=== PATIENT | female | born 1985 | race Caucasian/White ===

== ENCOUNTER 2018-03-22 08:55 | Inpatient (IN) | payer OTHER ==
[~2018-03-22] VITALS: Ht 155 cm; Wt 81.2 kg
[2018-03-22 09:18] VITALS: BP 112/73
[2018-03-22] MEDS ORDERED: PNV1TABL54 PO (09:19)
[2018-03-22] MEDS ORDERED: RINGERS SOLUTION,LACTATED 1,000 ML IV PRN (12:25)
[2018-03-22] MEDS ORDERED: OXYTOCIN 30 UNITS/LACT RINGERS 500 ML IV ONE (12:25)
[2018-03-22] MEDS ORDERED: RINGERS SOLUTION,LACTATED 1,000 ML IV SCH (12:25)
[2018-03-22] MEDS ORDERED: OXYTOCIN 30 UNITS/LACT RINGERS 500 ML IV PRN (12:28)
[2018-03-22] MEDS ORDERED: LIDOCAINE/PF 1% 30 ML VIAL INJ PRN (12:30)
[2018-03-22] MEDS ORDERED: METHYLERGONOVINE MALEATE 0.2 MG/ML VIAL IM PRN (12:30)
[2018-03-22] MEDS ORDERED: OXYGEN THERAPY IH SCH (12:30)
[2018-03-22] MEDS ORDERED: CITRIC ACID/SODIUM CITRATE 30 ML SOLUTION UDCUP PO PRN (12:30)
[2018-03-22] MEDS ORDERED: METOCLOPRAMIDE HCL 5 MG/ML 2 ML VIAL IVP PRN (12:30)
[2018-03-22] MEDS ORDERED: FentaNYL CITRATE-PF 100 MCG/2 ML VIAL IVP PRN (12:30)
[2018-03-22 13:04] LABS: BASOPHILS % (AUTO) 0.5 % (0.0-2.0); EOSINOPHILS % (AUTO) 0.1 % (1.0-6.0); HEMATOCRIT 31.7 % (36-46); LYMPHOCYTES # (AUTO) 1.5 K/uL (1.0-4.8); LYMPHOCYTES % (AUTO) 18.6 % (22.0-44.0); MEAN CORPUSCULAR HEMOGLOBIN 35.8 pg (26.0-34.0); MEAN CORPUSCULAR HGB CONC 34.7 G/dL (31.0-37.0); MEAN CORPUSCULAR VOLUME 103 fL (80-100); MONOCYTES # (AUTO) 0.4 K/uL (0.1-1.0); MONOCYTES % (AUTO) 5.4 % (2.0-9.0); NEUTROPHILS # (AUTO) 6.1 K/uL (1.8-7.7); NEUTROPHILS % (AUTO) 75.4 % (40.0-70.0); PLATELET COUNT (AUTO)-OB 226 K/uL (150-450); RED BLOOD CELL COUNT(AUTO) 3.06 MIL/uL (4.00-5.20); RED CELL DISTRIBUTION WIDTH 13.7 % (11.5-14.5)
[2018-03-22] MEDS ORDERED: ROPIVACAINE HCL/PF 0.2% 100 ML ED ONE (13:31)
[2018-03-22] MEDS ORDERED: ACETAMINOPHEN/CODEINE 300-30 MG TABLET PO PRN ×2 (16:00)
[2018-03-22] MEDS ORDERED: LANOLIN 7 GM OINTMENT TP PRN (16:00)
[2018-03-22] MEDS ORDERED: BENZOCAINE 20%/MENTHOL 56 GM SPRAY CANISTER TP PRN (16:00)
[2018-03-22] MEDS ORDERED: GLYCERIN/WITCH HAZEL LEAF 40 PADS JAR TP PRN (16:00)
[2018-03-22] MEDS: IBUPROFEN 800 MG TABLET PO SCH (18:01)
[2018-03-22] MEDS: MAGNESIUM HYDROXIDE SUSPENSION 30 ML UDCUP PO SCH (21:37)
[2018-03-23] MEDS: IBUPROFEN 800 MG TABLET PO SCH ×2 (01:02→08:29)
[2018-03-23] MEDS: MAGNESIUM HYDROXIDE SUSPENSION 30 ML UDCUP PO SCH (08:29)
[2018-03-23] MEDS ORDERED: IBUP-2071 PO (11:23)
[2018-03-23] MEDS ORDERED: DSS100 PO (11:24)
[2018-03-23] MEDS ORDERED: FERR-89 PO (11:25)
== END 2018-03-23 16:00 | disposition home or self-care (01) | DRG 807 ==
LOC: 4S 08:55 → OBSVTOIN 08:55
PROVIDERS: ADMIT Obstetrics & Gynecology; ATTEND Obstetrics & Gynecology
PROC: 10E0XZZ Delivery of Products of Conception, External Approach (ICD-10-PCS; principal; 2018-03-22)
PROC: 3E0R3BZ Introduction of Anesthetic Agent into Spinal Canal, Percutaneous Approach (ICD-10-PCS; 2018-03-22)
PROC: 00HU33Z Insertion of Infusion Device into Spinal Canal, Percutaneous Approach (ICD-10-PCS; 2018-03-22)
PROC: 10907ZC Drainage of Amniotic Fluid, Therapeutic from Products of Conception, Via Natural or Artificial Opening (ICD-10-PCS; 2018-03-22)
DX: O80 Encounter for full-term uncomplicated delivery (principal); Z37.0 Single live birth; Z3A.39 39 weeks gestation of pregnancy
CPT/HCPCS: 86850; 86900; 86901; J2590; J2795; J7120